=== PATIENT | female | born 1990 | race African-American/Black ===

== ENCOUNTER 2016-09-04 23:09 | Emergency (ER) | payer MEDICAID ==
[~2016-09-04] VITALS: Ht 167.6 cm; Wt 86.2 kg
[~2016-09-04 23:09] MED LIST: BACLOFEN10 MG ORAL; FLEXERIL10 MG ORAL; IBUPROFEN600 MG ORAL; NKM; NORCO 5-325 TA1 EACH ORAL; SOMA350 MG PO
[2016-09-04] MEDS ORDERED: NKM (23:20)
[2016-09-05 00:05] LABS: APPEARANCE,URINE CLEAR; KETONES,URINE NEGATIVE (NEGATIVE); LEUKOCYTE ESTERASE ,URINE NEGATIVE (NEGATIVE); NITRITE,URINE NEGATIVE (NEGATIVE); PH,URINE 6.5 (4.5-8.0); PROTEIN,URINE NEGATIVE (NEGATIVE); UROBILINOGEN,URINE NORMAL MG/DL (0.0-1.0)
[2016-09-05] MEDS ORDERED: ACETAMINOPHEN500 M5 PO (00:19)
[2016-09-05] MEDS ORDERED: VENTOLIN HFA18 GM INH (00:19)
[2016-09-05 00:25] VITALS: BP 128/87
[2016-09-05 00:30] VITALS: BP 128/87
--- NOTE | 2016-09-05 03:55 | Emergency Room Report ---
History of Present Illness General Chief Complaint: Upper Respiratory Illness Source: Patient Present Illness HPI 26 YOF with 3 days dry cough, myalgias, rhinorrhea, sore throat. Took Nyquill last night with minimal improvement. Denies chest pain, abd pain, urinary complaints, vaginal bleeding, fever/chills. Partner also sick with similar symptoms. Didnt get flu shot this year. Allergies: Coded Allergies: No Known Allergies (Unverified , 03/11/13) Patient History Past Medical History: none Past Surgical History: none Pertinent Family History: none Last Menstrual Period: Jun Now: Yes Immunizations: UTD Reviewed Nursing Documentation: PMH: Agreed, PSxH: Agreed Nursing Documentation-PMH Past Medical History: No Stated History Review of Systems All Other Systems: negative except mentioned in HPI Physical Exam Vital Signs Date Time Temp Pulse Resp B/P Pulse Ox O2 Delivery O2 Flow Rate FiO2 09/04/16 23:16 98.1 78 16 134/94 97 Room Air Sp02 EP Interpretation: reviewed, normal General Appearance: normal inspection, well appearing, no apparent distress, alert Head: normocephalic, atraumatic ENT: normal ENT inspection, hearing grossly normal, normal pharynx, no angioedema, normal voice, TMs + canals normal, uvula midline, moist mucus membranes, nasal congestion Neck: normal inspection, full range of motion, supple, no bony tend Respiratory: normal inspection, lungs clear, normal breath sounds, no respiratory distress, no retraction, no wheezing Cardiovascular #1: regular rate, rhythm, no edema Gastrointestinal: normal inspection, normal bowel sounds, non tender, soft, no guarding, no hernia, other - gravid uterus Genitourinary: no CVA tenderness Musculoskeletal: normal inspection, back normal, normal range of motion, Gage' s Sign negative Neurologic: normal inspection, alert, oriented x3, responsive, 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 VSS. Afebrile No obvious source of bacterial infection in oropharynx, ears, lungs, skin, abdomen on exam Well appearing Advised supportive treatment, albuterol, tylenol only Advised to NOT use Nyquill given PMD followup DC home Understands to return for worsening symptoms - Use albuterol and tylenol as needed for cough, body aches - Follow up with your primary care doctor in 2-3 days Last Vital Signs Date Time Temp Pulse Resp B/P Pulse Ox O2 Delivery O2 Flow Rate FiO2 09/05/16 00:30 98.1 74 17 128/87 98 Room Air Status: improved Disposition: HOME, SELF-CARE Condition: Improved Scripts Albuterol Sulfate (VENTOLIN HFA) 18 Gm Hfa.aer.ad 2 PUFFS INH EVERY 6 HOURS, #18 GM 0 Refills Prov: ARMANDO VILLARREAL M.D. 09/05/16 Acetaminophen (Acetaminophen) 500 Mg Tablet 500 MG PO TID for 7 Days, #30 TAB Prov: ARMANDO VILLARREAL M.D. 09/05/16 Referrals: [facility] (PCP) Patient Instructions: Upper Respiratory Infection, Adult Additional Instructions: - Take tylenol as prescribed for body/muscle aches, sore throat - Use albuterol inhaler as needed for cough, chest congestion - DO NOT Take other medications at this time because of your ARMANDO VILLARREAL M.D. Sep 05, 2016 03:55
== END 2016-09-05 00:30 | disposition home or self-care (01) ==
LOC: EMR 23:41
DX: J06.9 Acute upper respiratory infection, unspecified (principal); B97.89 Other viral agents as the cause of diseases classified elsewhere; O26.91 Pregnancy related conditions, unspecified, first trimester; Z3A.00 Weeks of gestation of pregnancy not specified
CPT/HCPCS: 81003; 81025; 99284

== ENCOUNTER 2016-09-15 05:06 | Emergency (ER) | payer MEDICAID ==
[~2016-09-15] VITALS: Ht 167.6 cm; Wt 86.2 kg
[~2016-09-15 05:06] MED LIST changes: +ACETAMINOPHEN500 M5 PO; +VENTOLIN HFA18 GM INH
[2016-09-15] MEDS ORDERED: Ketorolac 30mg Inj IM ONE (05:30)
[2016-09-15] MEDS ORDERED: Morphine Sulfate 4mg/ml Inj IM ONE (06:15)
[2016-09-15 06:55] VITALS: BP 138/95
[2016-09-15] MEDS ORDERED: Oxycodone/Acetaminophen 5-325 ORAL ONE (07:30)
[2016-09-15] MEDS ORDERED: IBUPROFEN800 MG ORAL (07:32)
[2016-09-15] MEDS ORDERED: BACLOFEN10 MG ORAL (07:32)
--- NOTE | 2016-09-15 07:37 | Emergency Room Report ---
History of Present Illness General Chief Complaint: Pain Source: Patient Present Illness Allergies: Coded Allergies: No Known Allergies (Unverified , 03/11/13) Patient History Last Menstrual Period: Jul Nursing Documentation-[facility] Past Medical History: No Stated History Physical Exam Vital Signs Date Time Temp Pulse Resp B/P Pulse Ox O2 Delivery O2 Flow Rate FiO2 09/15/16 05:09 97.3 88 16 143/93 98 Room Air Medical Decision Making Diagnostic Impression: Primary Impression: Muscle spasms of head AND/OR neck ER Course 26 YO F with back spasm of left side of upper back for a few days Received signout from Dr Harrison at 630am to reassess pain After IM toradol, PO valium, patient resting comfortably/"Relaxed" but still with sharp pain on movement Gave baclofen in ED with improvement Rx Baclofen, iburpofen Advised RICE, heat/ice, PMD followup DC home Last Vital Signs Date Time Temp Pulse Resp B/P Pulse Ox O2 Delivery O2 Flow Rate FiO2 09/15/16 06:55 97.3 09/15/16 06:55 63 16 138/95 99 Room Air Status: improved Disposition: HOME, SELF-CARE Condition: Improved Scripts Baclofen* (BACLOFEN*) 10 Mg Tablet 10 MG ORAL THREE TIMES A DAY for 10 Days, #30 TAB Prov: ARMANDO VILLARREAL M.D. 09/15/16 Ibuprofen* (MOTRIN*) 800 Mg Tablet 800 MG ORAL THREE TIMES A DAY, #30 TAB 0 Refills Prov: ARMANDO VILLARREAL M.D. 09/15/16 Referrals: NON PHYSICIAN (PCP) Patient Instructions: Thoracic Strain, [id number] Additional Instructions: - Apply heat and ice to area of pain to see which works best. Apply for 20min at a time 3-4x a day as needed. - Take ibuprofen 800mg 3x a day with food. Can also take baclofen - No heavy lifting until completely resolved - Try daily stretching, walking, and push the full range of motion as best as you can - Follow up with your primary care doctor to refer you for Orthopedics followup if no improvement in 3-4 weeks ARMANDO VILLARREAL M.D. Sep 15, 2016 07:37
[2016-09-15 08:26] VITALS: BP 138/95
--- NOTE | 2016-09-18 07:21 | Emergency Room Report ---
History of Present Illness General Chief Complaint: Pain Source: Patient Present Illness HPI 26-year-old female presents ED complaining of neck and back pain x3 days. Denies trauma. Notes history of back pain and muscle spasms. States that she took medications at home without relief. Pain is sharp. 10 out of 10. Radiating through her neck and upper back. No other aggravating relieving factors. Denies fevers chills. Denies chest pain or shortness of breath. No other aggravating or relieving factors. Denies any other associated symptoms Allergies: Coded Allergies: No Known Allergies (Unverified , 03/11/13) Patient History Past Medical History: none Past Surgical History: none Pertinent Family History: none Social History: Denies: alcohol use, drug use, smoking Last Menstrual Period: Jul Now: No Immunizations: UTD Reviewed Nursing Documentation: PMH: Agreed, PSxH: Agreed Nursing Documentation-PMH Past Medical History: No Stated History Review of Systems All Other Systems: negative except mentioned in HPI Physical Exam Vital Signs Date Time Temp Pulse Resp B/P Pulse Ox O2 Delivery O2 Flow Rate FiO2 09/15/16 05:09 97.3 88 16 143/93 98 Room Air Sp02 EP Interpretation: reviewed, normal General Appearance: normal inspection, mild distress Head: normocephalic Eyes: bilateral eye PERRL, bilateral eye normal inspection ENT: hearing grossly normal, normal pharynx, no angioedema, normal voice Neck: no bony tend, supple/symm/no masses, limited range of motion, tender lateral Respiratory: chest non-tender, lungs clear, normal breath sounds, speaking full sentences Cardiovascular #1: regular rate, rhythm, no edema Gastrointestinal: normal inspection Rectal: deferred Genitourinary: no CVA tenderness Musculoskeletal: other - paraspinal tenderness Neurologic: alert, oriented x3, responsive, motor strength/tone normal, sensory intact, speech normal Psychiatric: judgement/insight normal, memory normal, mood/affect normal, no suicidal/homicidal ideation Skin: normal inspection Lymphatic: normal inspection Medical Decision Making Diagnostic Impression: Primary Impression: Muscle spasms of head AND/OR neck ER Course Hospital Course 26-year-old female presents ED complaining of neck and upper back pain. No evidence of trauma Differential diagnoses include: rib strain, cervical strain, chronic pain Clinical course Patient placed on stretcher. After initial history and physical I ordered toradol and valium for pain. On reassessment patient continues to have pain. Given morphine IM Reviewed CURES; patient is not have a documented history of narcotic dependency Signed out to Dr. Villarreal pending clinical reassessment after medications Last Vital Signs Date Time Temp Pulse Resp B/P Pulse Ox O2 Delivery O2 Flow Rate FiO2 09/15/16 08:26 97.3 63 16 138/95 99 Room Air Disposition: HOME, SELF-CARE Condition: Improved Signed Out To: Dr Villarreal Scripts Baclofen* (BACLOFEN*) 10 Mg Tablet 10 MG ORAL THREE TIMES A DAY for 10 Days, #30 TAB Prov: ARMANDO VILLARREAL M.D. 09/15/16 Ibuprofen* (MOTRIN*) 800 Mg Tablet 800 MG ORAL THREE TIMES A DAY, #30 TAB 0 Refills Prov: ARMANDO VILLARREAL M.D. 09/15/16 Referrals: NON PHYSICIAN (PCP) Patient Instructions: Thoracic Strain, [id number] Additional Instructions: - Apply heat and ice to area of pain to see which works best. Apply for 20min at a time 3-4x a day as needed. - Take ibuprofen 800mg 3x a day with food. Can also take baclofen - No heavy lifting until completely resolved - Try daily stretching, walking, and push the full range of motion as best as you can - Follow up with your primary care doctor to refer you for Orthopedics followup if no improvement in 3-4 weeks VALENCIA LARSON M.D. Sep 18, 2016 07:21
== END 2016-09-15 08:27 | disposition home or self-care (01) ==
LOC: EMR 05:39
DX: M62.830 Muscle spasm of back (principal)
CPT/HCPCS: 96372; 99284; J1885; J2270

== ENCOUNTER 2017-05-10 10:15 | Emergency (ER) | payer MEDICAID ==
[~2017-05-10] VITALS: Ht 167.6 cm; Wt 81.6 kg
[~2017-05-10 10:15] MED LIST changes: +IBUPROFEN800 MG ORAL
--- NOTE | 2017-05-10 10:55 | Emergency Room Report ---
History of Present Illness General Chief Complaint: Pain Source: Patient Present Illness HPI Patient presents with complaints of left upper trapezius pain She reports that she was carrying her baby earlier this morning and felt increased discomfort She feels a sharp shooting pain that region denies any other fall or trauma as any chest pain or shortness of breath denies any fall or trauma Pain is 5/10 localized the mid trapezius and rhomboid region Patient has had previous presentations with neck discomfort and muscle skeletal pathology Allergies: Coded Allergies: No Known Allergies (Unverified , 03/11/13) Patient History Past Medical History: see triage record Pertinent Family History: none Last Menstrual Period: 06/2016 Reviewed Nursing Documentation: PMH: Agreed, PSxH: Agreed Nursing Documentation-PMH Past Medical History: No History, Except For Review of Systems All Other Systems: negative except mentioned in HPI Physical Exam Vital Signs Date Time Temp Pulse Resp B/P (MAP) Pulse Ox O2 Delivery O2 Flow Rate FiO2 05/10/17 10:23 97.9 60 14 187/95 97 Room Air Sp02 EP Interpretation: reviewed, normal General Appearance: well appearing, no apparent distress Head: normocephalic, atraumatic Eyes: bilateral eye PERRL, bilateral eye EOMI ENT: hearing grossly normal, normal pharynx, TMs + canals normal, uvula midline Neck: full range of motion, supple, no meningismus, no bony tend Respiratory: lungs clear, normal breath sounds, no rhonchi, no respiratory distress, no retraction, no accessory muscle use Cardiovascular #1: normal peripheral pulses, regular rate, rhythm, no edema, no gallop, no JVD, no murmur Gastrointestinal: normal bowel sounds, non tender, soft, no mass, no organomegaly, non-distended, no guarding, no hernia, no pulsatile mass, no rebound Genitourinary: no CVA tenderness Musculoskeletal: other - Tender on palpation of the left mid trapezius, also along the rhomboid region on the left side, no focal deficit equal strength bilaterally Neurologic: oriented x3, responsive, 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, motor strength/ tone normal, sensory intact Psychiatric: mood/affect normal Skin: normal color, no rash, warm/dry, palpation normal Lymphatic: normal inspection, no adenopathy Medical Decision Making Diagnostic Impression: Primary Impression: Myalgia Additional Impression: Muscle ache ER Course Patient's clinical exam is in line with a likely musculoskeletal pathology I do not suspect any obvious neurological or surgical deficits Patient is otherwise stable Was treated for pain here and requires close followup/ Last Vital Signs Date Time Temp Pulse Resp B/P (MAP) Pulse Ox O2 Delivery O2 Flow Rate FiO2 05/10/17 10:23 97.9 60 14 187/95 97 Room Air Status: improved Disposition: HOME, SELF-CARE Condition: Improved Scripts Methocarbamol* (ROBAXIN-750*) 750 Mg Tablet 750 MG PO TID, #21 TAB 0 Refills Prov: LANDY GEORGE D.O. 05/10/17 Ibuprofen* (MOTRIN*) 600 Mg Tablet 600 MG ORAL Q8H Y for For Pain, #20 TAB 0 Refills Prov: LANDY GEORGE D.O. 05/10/17 Referrals: NON PHYSICIAN (PCP) Additional Instructions: Patient is provided with the discharge instructions notified to follow up with primary doctor in the next 2-3 days otherwise return to the er with any worsening symptoms. Please note that this report is being documented using [employer] technology. This can lead to erroneous entry secondary to incorrect interpretation by the dictating instrument. LANDY GEORGE D.O. May 10, 2017 10:55
[2017-05-10] MEDS ORDERED: Methocarbamol 750mg tab ORAL ONE (11:00)
[2017-05-10] MEDS ORDERED: Ketorolac 60mg Inj IM ONE (11:00)
[2017-05-10] MEDS ORDERED: IBUPROFEN600 MG ORAL (11:37)
[2017-05-10] MEDS ORDERED: ROBAXIN-750750 MG PO (11:37)
[2017-05-10 11:50] VITALS: BP 168/126
== END 2017-05-10 11:50 | disposition home or self-care (01) ==
LOC: EMR 10:16
DX: M79.1 Myalgia (principal)
CPT/HCPCS: 96372; 99284

== ENCOUNTER 2018-03-04 00:13 | Emergency (ER) | payer MEDICAID ==
[~2018-03-04] VITALS: Ht 167.6 cm; Wt 98.0 kg
[~2018-03-04 00:13] MED LIST changes: +ROBAXIN-750750 MG PO
[2018-03-04 00:55] VITALS: BP 170/114
[2018-03-04 01:14] LABS: BASOPHILS % (AUTO) 0.7 % (0.0-2.0); HEMATOCRIT 38.5 % (37.0-47.0); HEMOGLOBIN 12.8 G/DL (12.0-16.0); LYMPHOCYTES % (AUTO) 28.1 % (20.0-45.0); MEAN CORPUSCULAR VOLUME 93 FL (80-99); NEUTROPHILS % (AUTO) 64.3 % (45.0-75.0); PLATELET COUNT 270 K/UL (150-450); RED BLOOD COUNT 4.14 M/UL (4.20-5.40); RED CELL DISTRIBUTION WIDTH 11.5 % (11.6-14.8); WHITE BLOOD COUNT 9.2 K/UL (4.8-10.8)
[2018-03-04 01:14] LABS: APPEARANCE,URINE CLEAR; BILIRUBIN, URINE NEGATIVE (NEGATIVE); COLOR,URINE PALE YELLOW; GLUCOSE, URINE (UA) NEGATIVE (NEGATIVE); KETONES,URINE NEGATIVE (NEGATIVE); LEUKOCYTE ESTERASE ,URINE NEGATIVE (NEGATIVE); NITRITE,URINE NEGATIVE (NEGATIVE); PH,URINE 6.5 (4.5-8.0); PROTEIN,URINE NEGATIVE (NEGATIVE); UROBILINOGEN,URINE NORMAL MG/DL (0.0-1.0)
[2018-03-04] MEDS ORDERED: Metoprolol 5mg/5ml Inj IVP ONE (01:15)
[2018-03-04 01:35] LABS: ANION GAP 7 mmol/L (5-15); BLOOD UREA NITROGEN 12 mg/dL (7-18); CALCIUM 8.7 MG/DL (8.5-10.1); CARBON DIOXIDE 30 MMOL/L (21-32); CHLORIDE 103 MMOL/L (98-107); CREATININE 0.9 MG/DL (0.55-1.30); POTASSIUM 3.9 MMOL/L (3.5-5.1); SODIUM 139 MMOL/L (136-145)
[2018-03-04 01:49] LABS: ALANINE AMINOTRANSFERASE 17 U/L (12-78); ALBUMIN 3.5 G/DL (3.4-5.0); ALBUMIN/GLOBULIN RATIO 0.9 (1.0-2.7); ALKALINE PHOSPHATASE 34 U/L (46-116); ASPARTATE AMINO TRANSFERASE 14 U/L (15-37); BILIRUBIN,TOTAL 0.3 MG/DL (0.2-1.0); CKMB 0.9 NG/ML (0.0-3.6); CREATINE KINASE 153 U/L (26-308)
[2018-03-04] MEDS ORDERED: Isovue-370 150ml vial INJ PRN (02:00)
[2018-03-04 02:47] VITALS: BP 138/91
[2018-03-04] MEDS ORDERED: Ketorolac 30mg Inj IV ONE (03:15)
[2018-03-04 04:51] VITALS: BP 128/82
[2018-03-04] MEDS ORDERED: IBUPROFEN600 MG ORAL (05:15)
[2018-03-04 05:22] VITALS: BP 128/82
--- NOTE | 2018-03-04 07:11 | Emergency Room Report ---
History of Present Illness General Chief Complaint: General Complaint Source: Patient Present Illness HPI Patient is a 27-year-old female presented after increased chest pain. Patient gradual onset of symptoms. The patient reports having her pain which radiated to her back. She had not been recently traveling her having increased leg swelling. She denied recent trauma. Patient prior history of hypertension. She denies any recent drug use. She had not been having any numbness or weakness to her extremities.The pain was worse with movement. Allergies: Coded Allergies: No Known Allergies (Unverified , 03/11/13) Patient History Past Medical History: see triage record, HTN Last Menstrual Period: a week ago Now: No Reviewed Nursing Documentation: PMH: Agreed; PSxH: Agreed Review of Systems All Other Systems: negative except mentioned in HPI Physical Exam Vital Signs Date Time Temp Pulse Resp B/P (MAP) Pulse Ox O2 Delivery O2 Flow Rate FiO2 03/04/18 00:34 98.3 76 18 156/89 98 Room Air 98.2 Sp02 EP Interpretation: reviewed, normal General Appearance: normal inspection, well appearing, no apparent distress, alert, GCS 15, non-toxic Head: normocephalic, atraumatic ENT: normal ENT inspection, hearing grossly normal, normal voice Neck: normal inspection, full range of motion, supple, no bony tend Respiratory: normal inspection, lungs clear, normal breath sounds, no respiratory distress, no retraction, no wheezing Cardiovascular #1: regular rate, rhythm, no edema Gastrointestinal: normal inspection, normal bowel sounds, non tender, soft, no guarding, no hernia Genitourinary: no CVA tenderness Musculoskeletal: normal inspection, back normal, normal range of motion Neurologic: normal inspection, alert, responsive, speech normal Psychiatric: normal inspection, judgement/insight normal, mood/affect normal Skin: normal inspection, normal color, no rash Medical Decision Making Diagnostic Impression: Primary Impression: Uncontrolled hypertension ER Course Patient presented for chest pain. Differential diagnosis included but was not limited to acute coronary syndrome, pulmonary embolism, pneumonia, aortic dissection, shingles, pneumothorax, aortic dissection, esophageal rupture, pericarditis. Because of complexity of patient's case laboratory testing and imaging studies were ordered. CTA of the chest read by radiology showed no evidence of pulmonary embolism. EKG showed normal sinus rhythm without acute ST or T wave changes. The patient was given pain medications improvement in her symptoms. The patient has no significant cardiac risk factor this time. The patient advised outpatient cardiac evaluation.The patient is advised to follow up with primary care doctor in 1-2 days. Patient is advised to return if any worsening condition or if any changes in status that are concerning. This report is dictated with [employer] adult health clinical nurse specialist software which may occasionally lead to discrepancies related to use of this software. Labs Test 03/04/18 00:41 03/04/18 01:00 Urine Color Pale yellow Urine Appearance Clear Urine pH 6.5 (4.5-8.0) Urine Specific Branch 1.015 (1.005-1.035) Urine Protein Negative (NEGATIVE) Urine Glucose (UA) Negative (NEGATIVE) Urine Ketones Negative (NEGATIVE) Urine Occult Blood Negative (NEGATIVE) Urine Nitrite Negative (NEGATIVE) Urine Bilirubin Negative (NEGATIVE) Urine Urobilinogen Normal MG/DL (0.0-1.0) Urine Leukocyte Esterase Negative (NEGATIVE) Urine HCG, Qualitative Negative (NEGATIVE) Urine Opiates Screen Negative (NEGATIVE) Urine Barbiturates Screen Negative (NEGATIVE) Phencyclidine (PCP) Screen Negative (NEGATIVE) Urine Amphetamines Screen Negative (NEGATIVE) Urine Benzodiazepines Screen Negative (NEGATIVE) Urine Cocaine Screen Negative (NEGATIVE) Urine Marijuana (THC) Screen Positive (NEGATIVE) White Blood Count 9.2 K/UL (4.8-10.8) Red Blood Count 4.14 M/UL (4.20-5.40) Hemoglobin 12.8 G/DL (12.0-16.0) Hematocrit 38.5 % (37.0-47.0) Mean Corpuscular Volume 93 FL (80-99) Mean Corpuscular Hemoglobin 31.0 PG (27.0-31.0) Mean Corpuscular Hemoglobin Concent 33.3 G/DL (32.0-36.0) Red Cell Distribution Width 11.5 % (11.6-14.8) Platelet Count 270 K/UL (150-450) Mean Platelet Volume 8.9 FL (6.5-10.1) Neutrophils (%) (Auto) 64.3 % (45.0-75.0) Lymphocytes (%) (Auto) 28.1 % (20.0-45.0) Monocytes (%) (Auto) 6.0 % (1.0-10.0) Eosinophils (%) (Auto) 1.0 % (0.0-3.0) Basophils (%) (Auto) 0.7 % (0.0-2.0) Prothrombin Time 10.7 SEC (9.30-11.50) Prothromb Time International Ratio 1.0 (0.9-1.1) Activated Partial Thromboplast Time 25 SEC (23-33) Sodium Level 139 MMOL/L (136-145) Potassium Level 3.9 MMOL/L (3.5-5.1) Chloride Level 103 MMOL/L (98-107) Carbon Dioxide Level 30 MMOL/L (21-32) Anion Gap 7 mmol/L (5-15) Blood Urea Nitrogen 12 mg/dL (7-18) Creatinine 0.9 MG/DL (0.55-1.30) Estimat Glomerular Filtration Rate > 60 mL/min (>60) Glucose Level 91 MG/DL (74-106) Calcium Level 8.7 MG/DL (8.5-10.1) Total Bilirubin 0.3 MG/DL (0.2-1.0) Aspartate Amino Transf (AST/SGOT) 14 U/L (15-37) Alanine Aminotransferase (ALT/SGPT) 17 U/L (12-78) Alkaline Phosphatase 34 U/L (46-116) Total Creatine Kinase 153 U/L (26-308) Creatine Kinase MB 0.9 NG/ML (0.0-3.6) Creatine Kinase MB Relative Index 0.5 Troponin I 0.000 ng/mL (0.000-0.056) Pro-B-Type Natriuretic Peptide 11 pg/mL (0-125) Total Protein 7.3 G/DL (6.4-8.2) Albumin 3.5 G/DL (3.4-5.0) Globulin 3.8 g/dL Albumin/Globulin Ratio 0.9 (1.0-2.7) EKG Diagnostic Results Rate: normal Rhythm: NSR ST Segments: no acute changes Rhythm Strip Diag. Results EP Interpretation: yes Rhythm: NSR, no PVC's Last Vital Signs Date Time Temp Pulse Resp B/P (MAP) Pulse Ox O2 Delivery O2 Flow Rate FiO2 03/04/18 05:22 98.6 74 13 128/82 99 Room Air 98.6 Status: improved Disposition: HOME, SELF-CARE Condition: Stable Scripts Ibuprofen* (MOTRIN*) 600 Mg Tablet 600 MG ORAL Q8H PRN for For Pain, #30 TAB 0 Refills Prov: Kush Carter MD 03/04/18 Patient Instructions: Nonspecific Chest Pain, [id number] Kush Carter MD Mar 04, 2018 07:11
--- NOTE | 2018-03-04 08:46 | Diagnostic Imaging Report ---
ndication: Chest pain Technique: IV administration nonionic contrast. Spiral acquisitions obtained from the lung bases to the lung apices. Multiplanar and 3-D reconstructions were generated. Total dose length product 885.69 mGycm. CTDIvol(s) 28.38 mGy. Dose reduction achieved using automated exposure control Comparison: none Findings: Pulmonary arterial opacification is somewhat suboptimal peripherally. No gross pulmonary emboli are demonstrated. No evidence of right ventricular dilatation or pulmonary artery dilatation. No evidence of thoracic aortic aneurysm or dissection. The lungs are clear. No infiltrates, effusions, congestion, masses, or nodules are demonstrated. No pericardial effusion. No mediastinal or hilar mass or adenopathy. No axillary or chest wall mass or adenopathy. Included upper abdominal viscera are unremarkable Impression: Somewhat limited exam, due to suboptimal pulmonary arterial opacification. No central pulmonary emboli demonstrated Otherwise unremarkable This agrees with the preliminary interpretation provided overnight by [facility] teleradiology service. The CT scanner at [facility] is accredited by the [employer] and the scans are performed using protocols designed to limit radiation exposure to as low as reasonably achievable to attain images of sufficient resolution adequate for diagnostic evaluation.
--- NOTE | 2018-03-04 11:31 | Diagnostic Imaging Report ---
Indication: Chest pain Technique: One view of the chest Comparison: none Findings: Lungs and pleural spaces are clear. Heart size is normal Impression: No acute process
--- NOTE | 2018-03-05 13:38 | Cardiology Report ---
APPROVED REPORT EKG Measurement Heart [id number] Normal sinus rhythm with sinus arrhythmia Normal ECG
== END 2018-03-04 05:22 | disposition home or self-care (01) ==
LOC: EMR 02:31
DX: I10 Essential (primary) hypertension (principal)
CPT/HCPCS: 36415; 71045; 71275; 80053; 80307; 81003; 81025; 82550; 82553; 83880; 84484; 85025; 85610; 85730; 93005; 96374; 96375; 99284; J1885; Q9967

== ENCOUNTER 2019-08-30 22:24 | Emergency (ER) | payer MEDICAID ==
[~2019-08-30] VITALS: Ht 167.6 cm; Wt 90.7 kg
--- NOTE | 2019-08-30 22:40 | NUR ---
ED Nurse Note: PT WALKED TO ED C/O COUGH AND CONGESTION X5 DAYS. REPORTS CHILLS, NAUSEA AND DIARRHEA. PT DOES NOT PRESENT WITH FEVER AT ED. VSS, NAD. WILL CONTINUE TO MONITOR PATIENT.
[2019-08-30] MEDS ORDERED: ACETAMINOPHEN-1 EAC1 ORAL (22:41)
[2019-08-30 23:01] VITALS: BP 146/91
[2019-08-30] MEDS ORDERED: PSEUDOEPHEDRINE60 MG PO (23:42)
[2019-08-30] MEDS ORDERED: IBUPROFEN600 MG ORAL (23:42)
--- NOTE | 2019-08-30 23:43 | Emergency Room Report ---
History of Present Illness General Chief Complaint: Upper Respiratory Illness Source: Patient Present Illness HPI This a 29-year-old female with no past medical history. She presents with chief complaint of cough congestion sore throat. Also with diarrhea. Onset for last for 5 days. Her daughter was sick. Her 14-year-old daughter is also sick. She has been taking some leftover amoxicillin. Generalized body pain. No fever or chills. No productive cough. Nothing made it better. Nothing made it worse. Allergies: Coded Allergies: No Known Allergies (Unverified , 03/11/13) Patient History Past Medical History: see triage record, old chart reviewed Past Surgical History: none Pertinent Family History: none Social History: Denies: smoking Last Menstrual Period: 08/09/19 Now: No Immunizations: other Reviewed Nursing Documentation: PMH: Agreed; PSxH: Agreed Nursing Documentation-PMH Past Medical History: No History, Except For Review of Systems Constitutional: Reports: malaise Eye: Denies: eye pain, blurred vision ENT: Reports: nose congestion, throat pain; Denies: ear pain, throat swelling Respiratory: Reports: cough; Denies: shortness of breath Cardiovascular: Denies: chest pain, palpitations Gastrointestinal: Denies: abdominal pain, diarrhea, nausea, vomiting Musculoskeletal: Denies: back pain, joint pain Skin: Denies: rash Neurological: Denies: headache, numbness Endocrine: Denies: increased thirst, increased urine Hematologic/Lymphatic: Denies: easy bruising All Other Systems: negative except mentioned in HPI Physical Exam Vital Signs Date Time Temp Pulse Resp B/P (MAP) Pulse Ox O2 Delivery O2 Flow Rate FiO2 08/30/19 22:36 98.1 82 16 158/103 (121) 98 Room Air 08/30/19 23:01 98 Vitals with high blood pressure. Repeat blood pressure 120/76 Sp02 EP Interpretation: reviewed, normal General Appearance: well appearing, no apparent distress, alert Head: normocephalic, atraumatic Eyes: bilateral eye PERRL, bilateral eye EOMI ENT: hearing grossly normal, normal pharynx Neck: full range of motion, supple, no meningismus Respiratory: chest non-tender, lungs clear, normal breath sounds Cardiovascular #1: regular rate, rhythm, no murmur Gastrointestinal: normal bowel sounds, non tender, no mass, no organomegaly, no bruit, non-distended Musculoskeletal: back normal, normal range of motion, gait/station normal Psychiatric: mood/affect normal Medical Decision Making Diagnostic Impression: Primary Impression: Upper respiratory infection Qualified Codes: J06.9 - Acute upper respiratory infection, unspecified ER Course This patient presents with an upper respiratory infection. No meningitis, sepsis, pneumonia or other serious bacterial infection. Last Vital Signs Date Time Temp Pulse Resp B/P (MAP) Pulse Ox O2 Delivery O2 Flow Rate FiO2 08/30/19 23:01 82 16 Room Air 98 08/30/19 23:01 98.5 146/91 98 Status: unchanged Disposition: HOME, SELF-CARE Condition: Stable Scripts Ibuprofen* (MOTRIN*) 600 Mg Tablet 600 MG ORAL THREE TIMES A DAY, #30 TAB 0 Refills Prov: Soy Milner MD 08/30/19 Pseudoephedrine Hcl* (SUDAFED*) 60 Mg Tablet 60 MG PO Q6H, #30 TAB Prov: Soy Milner MD 08/30/19 Referrals: [facility] (PCP) Patient Instructions: Upper Respiratory Infection, Adult Additional Instructions: Stop amoxicillin. Follow-up with in 7 days. Return if worse. Soy Milner MD Aug 30, 2019 23:43
[2019-08-30 23:45] VITALS: BP 146/91
--- NOTE | 2019-08-30 23:45 | NUR ---
ER DISCHARGE NOTE: Patient is cleared to be discharged per ERMD, pt is aox4, on room air, with stable vital signs. pt was given dc and prescription instructions, pt was able to verbalize understanding, pt id band removed without complications. pt is able to ambulate with steady gait. pt took all belongings.
== END 2019-08-30 23:45 | disposition home or self-care (01) ==
LOC: EMR 23:06
DX: J06.9 Acute upper respiratory infection, unspecified (principal)
CPT/HCPCS: 99282